=== PATIENT | male | born 1990 | race African-American/Black ===

== ENCOUNTER 2016-07-03 06:07 | Emergency (ER) ==
[2016-07-03 06:11] VITALS: BP 155/100
--- NOTE | 2016-07-03 06:36 | PROVIDER DOCUMENTATION ---
HPI-General Adult - General Chief Complaint: Back Pain Stated Complaint: lower back pain Time Seen by Provider: 07/03/16 06:10 Source: patient Allergies/Adverse Reactions: Patient Allergies Allergy/AdvReac Type Severity Reaction Status Date / Time No Known Allergies Allergy Verified 07/03/16 06:12 - History of Present Illness -Gen Adult Nature of Presenting Problems: Recurrent LBP X 2 days. Reports he did heavy lifting before the pain started. Pain located b/l lumbar region w/o radiation to his legs. Pt has no difficulty moving/walking around. And reports he had same pain before. Denies abd pain and no other concerns. Location of Pain/Injury: reports: back. denies: neck, chest, lower extremity, feet, upper body Pain Radiation: reports: no radiation Quality of Pain: reports: aching Severity: reports: moderate Onset/Duration: reports: 2 days ago Timing: reports: still present Context/Activities at Onset: reports: other (See above) Modifying Factors: improves with: nothing Associated Symptoms: reports: denies symptoms, anxiety Similar Symptoms Previously?: Yes Recently seen or treated by another doctor?: Yes Review of Systems - Adult - REVIEW OF SYSTEMS - ADULT Constitutional: reports: no symptoms reported Eyes: reports: no symptoms reported Ears, Nose, Mouth & Throat: reports: no symptoms reported Cardiovascular: reports: no symptoms reported Respiratory: reports: no symptoms reported Gastrointestinal: reports: no symptoms reported Genitourinary: reports: no symptoms reported Musculoskeletal: reports: see HPI, back pain All Other Systems: Reviewed and Negative Past History - Adult - PAST MEDICAL HISTORY-ADULT Major Childhood Illnesses: reports: denies history Cardiovascular: reports: denies history Respiratory: reports: asthma Gastrointestinal: reports: GERD Genitourinary: reports: denies history Musculoskeletal: reports: denies history Neurological: reports: denies history Endocrine/Immune: reports: denies history Other Conditions: reports: denies history - PRIOR SURGERIES/PROCEDURES Surgical/Procedure History: reports: other (dental) - PRIOR HOSPITALIZATIONS Prior Hospitalizations: reports: none - IMMUNIZATION STATUS Childhood Immunizations: UTD, See Nurse Assessment Flu Vaccine: See Nurse Assessment - FAMILY HISTORY Family History: reviewed, not pertinent Physical Exam-General - PHYSICAL EXAM-ADULT Initial Vital Signs Reviewed: Yes - CONSTITUTIONAL General Appearance: appears well, alert, no apparent distress - RESPIRATORY Respiratory: chest non-tender, lungs clear, normal breath sounds, no pleuratic chest pain, no respiratory distress - CARDIOVASCULAR Cardiovascular: normal peripheral pulses, regular rate, rhythm, no edema, no gallop - GASTROINTESTINAL (ABDOMEN) Abdominal Exam: normal bowel sounds, non tender, soft, no organomegaly - MUSCULOSKELETAL Back Exam: normal inspection, no CVA tenderness, no vertebral tenderness, muscle spasm, other (B/l lumbar region muscel spasm and mild tenderness). negative: vertebral tenderness Extremity: normal range of motion, non-tender, normal gait, normal inspection - NEUROLOGIC Neurologic: no motor/sensory deficits, abnormal gait - PSYCHIATRIC Psych/Mental Status: normal mood/affect, normal thought content, normal thought process, oriented x 3 Progress - PLAN OF CARE/RESULTS Progress/Plan/Lab Results: Vital Signs Temp Pulse Resp BP Pulse Ox 07/03/16 06:10 97.8 F 77 16 155/100 100 No Known Allergies Allergy (Verified 07/03/16 06:12) Cyclobenzaprine [Flexeril] 10 mg PO TID PRN #20 tablet 04/18/16 - REASSESSMENT Reassessment #1 Time Reassessed: 06:35 Status: other (NAD, refused Toradol IM, wants pills - stating that he was given Rembrandt on his last visit to ER.) Departure - Departure Time of Disposition Order: 06:36 DIAGNOSIS: Acute bilateral low back pain Qualifiers: Sciatica presence: without sciatica Qualified Code(s): M54.5 - Low back pain Disposition: HOME 01 Certified Medical Emergency: Emergent Condition: Stable Additional Instructions: Follow up with regular MD for further management as indicated. Prescriptions: Cyclobenzaprine [Flexeril] 10 mg PO HS #15 tablet Methylprednisolone [Medrol Dosepak] 4 mg PO DIRECTED #1 package Naproxen [Naprosyn] 500 mg PO BID #20 tablet
== END 2016-07-03 06:52 | disposition home or self-care (01) ==
LOC: ED 06:07
DX: M54.5 Low back pain (principal); X50.0XXA Overexertion from strenuous movement or load, initial encounter; Z79.899 Other long term (current) drug therapy
CPT/HCPCS: 99281

== ENCOUNTER 2016-09-05 08:15 | Emergency (ER) ==
[2016-09-05] MEDS ORDERED: DECADRON IM ONE (10:07)
[2016-09-05] MEDS ORDERED: TORADOL IM ONE (10:07)
--- NOTE | 2016-09-05 10:07 | PROVIDER DOCUMENTATION ---
HPI-Musculoskeletal Pain/Inj - GENERAL Chief Complaint: Back Pain Stated Complaint: back pain Time Seen by Provider: 09/05/16 09:06 Source: patient - HX OF PRESENT ILLNESS-MUSKULOSKELTAL Nature of Presenting Problem: 26 y/o BM c/o low back pain x 6 months. Pt states injured it at work and has intermittent pain. States [facility] and just needs some more to hold him over until he can save enough money to see the specialist. States that it was a workman's comp accident where he fell and was seen here initially. Denies any change in the pain, new injury/trauma, numbness/tingling , bowel/bladder dysfunction. Review of Systems - Adult - REVIEW OF SYSTEMS - ADULT Constitutional: reports: no symptoms reported. denies: chills, fever Eyes: reports: no symptoms reported. denies: blurred vision, double vision Ears, Nose, Mouth & Throat: reports: no symptoms reported. denies: ear pain, nose pain Cardiovascular: reports: no symptoms reported. denies: chest pain, palpitations Respiratory: reports: no symptoms reported. denies: dyspnea on exertion, shortness of breath Gastrointestinal: reports: no symptoms reported. denies: nausea, vomiting Genitourinary: reports: no symptoms reported. denies: dysuria, frequency Musculoskeletal: reports: see HPI, back pain. denies: joint pain, joint swelling Integumentary: reports: no symptoms reported. denies: nail changes, rash Neurological: reports: no symptoms reported. denies: numbness, paresthesia Psychiatric: reports: no symptoms reported Endocrine: reports: no symptoms reported. denies: cold intolerance, heat intolerance Hematologic/Lymphatic: reports: no symptoms reported. denies: easy bruising, prolonged bleeding Allergic/Immunologic: reports: no symptoms reported All Other Systems: Reviewed and Negative Past History - Adult - PAST MEDICAL HISTORY-ADULT Review of Records: reports: Nursing Assessment Review, Medications Reviewed Major Childhood Illnesses: reports: denies history Cardiovascular: reports: denies history Respiratory: reports: asthma Gastrointestinal: reports: GERD Genitourinary: reports: denies history Musculoskeletal: reports: denies history Neurological: reports: denies history Endocrine/Immune: reports: denies history Other Conditions: reports: denies history - PRIOR SURGERIES/PROCEDURES Surgical/Procedure History: reports: other (dental) - PRIOR HOSPITALIZATIONS Prior Hospitalizations: reports: none - IMMUNIZATION STATUS Childhood Immunizations: UTD, See Nurse Assessment Flu Vaccine: See Nurse Assessment - FAMILY HISTORY Family History: reviewed, not pertinent - SOCIAL HISTORY Smoking: quit less than 1 year Physical Exam-Injury Related - Physical Exam-Injury Related Initial Vital Signs Reviewed: Yes General Appearance: alert, mild distress, obese Eyes: pink conjunctivae Head, Ears, Nose, Mouth & Throat: normocephalic/atraumatic Neck: normal inspection Respiratory: no respiratory distress Cardiovascular: normal peripheral pulses, regular rate, rhythm Peripheral Pulses: dorsalis-pedis (R): 1+, dorsalis-pedis (L): 1+ Back Exam: no CVA tenderness, no vertebral tenderness, other (TTP bilat low back ) Extremity: normal gait. negative: abnormal NV exam, pulse deficit Integumentary: normal color, warm/dry, blanching Neurologic: negative: aphasia, motor weakness, sensory deficit Psych/Mental Status: normal mood/affect, normal thought content, normal thought process, oriented x 3 Progress - PLAN OF CARE/RESULTS Progress/Plan/Lab Results: Orders Category Date Time Status Dexamethasone [Decadron] Med 09/05/16 10:07 Discontinued 10 mg IM NOW ONE Ketorolac [Toradol] Med 09/05/16 10:07 Discontinued 60 mg IM NOW ONE Vital Signs Temp Pulse Resp BP Pulse Ox 09/05/16 08:18 98.4 F 79 18 135/83 99 No Known Allergies Allergy (Verified 09/05/16 09:10) Cyclobenzaprine [Flexeril] 10 mg PO HS #15 tablet 07/03/16 Cyclobenzaprine [Flexeril] 10 mg PO TID #30 tablet 09/05/16 Diclofenac Sodium [Voltaren] 75 mg PO BID #30 tablet. 09/05/16 Reviewed Xray from 06/07/2016 which showed no acute findings, per Dr. Zeng. Discussed medication use, heat or ice, and f/u with pt. Departure - Departure Time of Disposition Order: 10:02 DIAGNOSIS: Back pain Qualifiers: Back pain location: low back pain Chronicity: chronic Back pain laterality: bilateral Sciatica presence: without sciatica Qualified Code(s): M54.5 - Low back pain Disposition: HOME 01 Certified Medical Emergency: Emergent Condition: Stable Additional Instructions: Take medications as directed. Heat or ice as needed to the area. Follow up with specialist for further management. ED Follow Up Instructions: You have been treated by a care provider in the Emergency Department. These instructions are being provided to you so you can have an understanding of how to care for yourself upon discharge. Upon discharge from the Emergency Department, you are responsible for making arrangements for follow-up care by a physician of your choice. Take all prescribed medications as directed. Return to the Emergency Department immediately for any new or worsening symptoms. You may call the Physician Referral phone number at [phone] to obtain a list of Physicians who are taking new patients. Prescriptions: Cyclobenzaprine [Flexeril] 10 mg PO TID #30 tablet Diclofenac Sodium [Voltaren] 75 mg PO BID #30 tablet.dr Referrals: None,PCP [Primary Care Provider] - Maldonado Montana MD [STAFF PHYSICIAN] - Forms: Return to School/Parent Work Instructions: Back Pain, Adult Attestation - Physician/ TRIXIE Attestation Patient care was provided by Advanced Practice Provider:: Yes Advanced Practice Provider:: Rae Mcgarry Advanced Practice Provider documentation review:: The Mid-level provider documentation, treatment plan and medical decision making was reviewed by the physician who agrees with all treatment and medical decision making by the P.
[2016-09-05 10:31] VITALS: BP 143/81
== END 2016-09-05 10:24 | disposition home or self-care (01) ==
LOC: ED 08:15
DX: M54.5 Low back pain (principal); W19.XXXD Unspecified fall, subsequent encounter; Z87.891 Personal history of nicotine dependence; Z79.899 Other long term (current) drug therapy
CPT/HCPCS: J1885